=== PATIENT | male | born 1955 | race Caucasian/White ===

== ENCOUNTER 2021-06-25 13:08 | Observation (INO) | payer MEDICAID ==
[~2021-06-25] VITALS: Ht 190.5 cm; Wt 158.8 kg
[2021-06-25 13:13] VITALS: BP_SYST 158
[2021-06-25] MEDS ORDERED: *HEPARIN PER PHARMACY XX ONE (15:00)
[2021-06-25] MEDS ORDERED: HEPARIN SODIUM,PORCINE 2000 UNITS/0.4 ML BOLUS IVP PRN (15:15)
[2021-06-25] MEDS ORDERED: HEPARIN SODIUM,PORCINE 3000 UNITS/0.6 ML BOLUS IVP PRN (15:15)
[2021-06-25] MEDS ORDERED: HEPARIN 25,000 UNITS in 250 ML PREMIX IV PRN (15:30)
[2021-06-25] MEDS ORDERED: NACL 0.9% 1,000 ML IV ONE (15:30)
[2021-06-25] MEDS ORDERED: HEPARIN SODIUM,PORCINE 5,000 UNITS/ML VIAL IV ONE (15:30)
[2021-06-25] MEDS ORDERED: *LOVENOX 1MG/KG Q12H/PHARMACY XX ONE (15:30)
[2021-06-25] MEDS ORDERED: METOPROLOL TARTRATE 25 MG TABLET PO ONE (15:45)
[2021-06-25 16:06] LABS: BASOPHILS # (AUTO) 0.1 K/uL (0.0-0.2); BASOPHILS % (AUTO) 0.4 % (0.0-2.0); EOSINOPHILS # (AUTO) 0.3 K/uL (0.0-0.4); EOSINOPHILS % (AUTO) 2.6 % (0.0-4.0); HEMATOCRIT 48.3 % (36-54); HEMOGLOBIN 16.4 g/dL (14.0-18.0); LYMPHOCYTES # (AUTO) 1.2 K/uL (1.0-5.5); LYMPHOCYTES % (AUTO) 10.2 % (20.5-51.5); MEAN CORPUSCULAR HEMOGLOBIN 33 pg (27-31); MEAN CORPUSCULAR HGB CONC 34 % (32-36); MEAN CORPUSCULAR VOLUME 96 fL (79.0-98.0); MONOCYTES # (AUTO) 1.5 K/uL (0.0-1.0); MONOCYTES % (AUTO) 12.6 % (1.7-9.3); NEUTROPHILS # (AUTO) 8.8 K/uL (1.8-7.7); NEUTROPHILS % (AUTO) 74.2 % (40.0-70.0); PLATELET COUNT (AUTO) 289 K/uL (130-430); RED BLOOD CELL COUNT(AUTO) 5.02 MIL/uL (4.2-6.2); RED CELL DISTRIBUTION WIDTH 13.7 % (9.0-15.0); WHITE BLOOD COUNT (AUTO) 11.8 K/uL (4.8-10.8)
[2021-06-25 16:12] LABS: PROTHROMBIN TIME 10.7 SECS (9.5-12.5)
[2021-06-25 16:13] LABS: CALCIUM 8.8 mg/dL (8.4-11.0); CREATININE 0.85 mg/dL (0.55-1.30)
[2021-06-25 16:23] LABS: ALBUMIN 3.1 g/dL (3.4-4.8); TOTAL BILIRUBIN 0.7 mg/dL (0.0-1.0)
[2021-06-25] MEDS: ENOXAPARIN SODIUM 120 MG/0.8 ML SYRINGE SUBCUT SCH (16:57)
[2021-06-25] MEDS: ENOXAPARIN SODIUM 30 MG/0.3 ML SYRINGE SUBCUT SCH (17:02)
[2021-06-25 17:49] VITALS: BP_SYST 142
[2021-06-25] MEDS: METOPROLOL TARTRATE 25 MG TABLET PO SCH (21:49)
[2021-06-26] MEDS: ENOXAPARIN SODIUM 30 MG/0.3 ML SYRINGE SUBCUT SCH (04:24)
[2021-06-26] MEDS: ENOXAPARIN SODIUM 120 MG/0.8 ML SYRINGE SUBCUT SCH (04:24)
[2021-06-26] MEDS: METOPROLOL TARTRATE 25 MG TABLET PO SCH (08:39)
[2021-06-26] MEDS ORDERED: ACETAMINOPHEN 500 MG TABLET PO ONE (11:00)
[2021-06-26] MEDS ORDERED: APIX5TAB PO (11:02)
[2021-06-26] MEDS ORDERED: METO25TA6 PO (11:02)
== END 2021-06-26 13:05 | disposition home or self-care (01) ==
LOC: SED 13:08 → SMU 15:27
PROVIDERS: ADMIT General Practice; ATTEND General Practice
DX: I82.402 Acute embolism and thrombosis of unspecified deep veins of left lower extremity (principal); Z20.822 Contact with and (suspected) exposure to COVID-19; E66.9 Obesity, unspecified; I10 Essential (primary) hypertension; Z79.899 Other long term (current) drug therapy
CPT/HCPCS: 36415; 80053; 85025; 85610; 85730; 87426; 93971; 96360; 96372 ×2; 99284; G0378 ×2; J1650 ×4; J1644

== ENCOUNTER 2023-10-25 11:01 | Inpatient (IN) | payer MEDICAID, OTHER ==
[~2023-10-25] VITALS: Ht 190.5 cm; Wt 144.7 kg
[~2023-10-25 11:01] MED LIST: APIX5TAB PO; METO25TA6 PO
[2023-10-25 11:04] VITALS: BP_SYST 120; PULSE 90; RESP 18; TEMP 97.8; O2SAT 93
[2023-10-25 12:00] LABS: BASOPHILS % (AUTO) 0.4 % (0.0-2.0); EOSINOPHILS # (AUTO) 0.3 K/uL (0.0-0.4); EOSINOPHILS % (AUTO) 3.6 % (0.0-4.0); HEMATOCRIT 45.9 % (36-54); HEMOGLOBIN 15.4 g/dL (14.0-18.0); LYMPHOCYTES # (AUTO) 1.3 K/uL (1.0-5.5); MEAN CORPUSCULAR HEMOGLOBIN 34 pg (27-31); MEAN CORPUSCULAR HGB CONC 33 % (32-36); MEAN CORPUSCULAR VOLUME 100 fL (79.0-98.0); MONOCYTES # (AUTO) 0.9 K/uL (0.0-1.0); MONOCYTES % (AUTO) 9.9 % (1.7-9.3); NEUTROPHILS # (AUTO) 6.6 K/uL (1.8-7.7); NEUTROPHILS % (AUTO) 72.1 % (40.0-70.0); PLATELET COUNT (AUTO) 360 K/uL (130-430); RED BLOOD CELL COUNT(AUTO) 4.57 MIL/uL (4.2-6.2); RED CELL DISTRIBUTION WIDTH 14.2 % (9.0-15.0); WHITE BLOOD COUNT (AUTO) 9.2 K/uL (4.8-10.8)
[2023-10-25 12:54] LABS: ALANINE AMINOTRANSFERASE 19 U/L (12-78); ALBUMIN 2.7 g/dL (3.4-4.8); ANION GAP 8 (5-15); ASPARTATE AMINOTRANSFERASE 15 U/L (10-37); BILIRUBIN,DIRECT 0.3 mg/dL (0.0-0.3); CALCIUM 8.5 mg/dL (8.4-11.0); CARBON DIOXIDE 28 mmol/L (23-29); CHLORIDE 102 mmol/L (98-107); CREATINE KINASE, TOTAL 58 U/L (39-308); CREATININE 0.86 mg/dL (0.55-1.30); GFR AFRICAN AMERICAN 114 mL/min (>90); GLUCOSE 130 mg/dL (74-106); POTASSIUM 4.2 mmol/L (3.5-5.1); SALICYLATE 1 mg/dL (3-30); SODIUM SERUM 138 mmol/L (136-145); TOTAL BILIRUBIN 0.9 mg/dL (0.0-1.0); TOTAL PROTEIN, SERUM 6.3 g/dL (6.4-8.3); UREA NITROGEN, BLOOD 11 mg/dL (8-21)
[2023-10-25 13:01] LABS: ACETAMINOPHEN < 1 ug/mL (1-30); ALCOHOL, BLOOD < 3 mg/dL (<10); GFR NON AFRICAN-AMERICAN 95 mL/min (>90)
[2023-10-25] MEDS: cloNIDine HCL 0.1 MG TABLET PO ONE (13:34)
[2023-10-25 13:40] LABS: BILIRUBIN,URINE 1+ (NEGATIVE); BLOOD, URINE 2+ (NEGATIVE); CLARITY/URINE CLEAR (CLEAR); COLOR,URINE YELLOW (YELLOW); GLUCOSE,URINE NEGATIVE (NEGATIVE); KETONES,URINE NEGATIVE (NEGATIVE); LEUKOCYTE ESTERASE ,URINE NEGATIVE (NEGATIVE); NITRITE, URINE NEGATIVE (NEGATIVE); PROTEIN URINE NEGATIVE (NEGATIVE)
[2023-10-25 13:59] LABS: BARBITURATE, URINE NEGATIVE (NEG <=200); BENZODIAZEPINE, URINE NEGATIVE (NEG <=150); CANNABINOID, URINE NEGATIVE (NEG <=50); COCAINE, URINE NEGATIVE (NEG <=150); METHAMPHETAMINES SCREEN,URINE NEGATIVE (NEG <=500); OPIATE, URINE NEGATIVE (NEG <=100); PHENCYCLIDINE SCREEN,URINE NEGATIVE (NEG <=25); URINE AMPHETAMINE NEGATIVE (NEG <=500); URINE METHADONE NEGATIVE (NEG <=200); URINE OXYCODONE SCREEN NEGATIVE (NEG <=100)
[2023-10-25 14:00] LABS: UR TRICYCLIC ANTIDEPRESSANTS NEGATIVE (NEG <=300)
[2023-10-25 14:14] LABS: ACETONE, SERUM NEGATIVE (NEGATIVE)
[2023-10-25 14:30] LABS: BACTERIA,URINE None Seen /HPF (None Seen); WBC,URINE NONE SEEN /HPF (0-3)
[2023-10-25] MEDS ORDERED: LORazepam 2 MG/ML VIAL IM PRN (17:00)
[2023-10-25] MEDS: NEPHROVITE, (FOLIC ACID/VITAMIN B COMP W-C 1 TAB) PO ONE (18:00)
[2023-10-25 18:20] VITALS: BP_SYST 159; PULSE 63; RESP 15; TEMP 97.6; O2SAT 95
[2023-10-25] MEDS: MULTIVITAMINS TAB 1 TABLET PO ONE (18:35)
[2023-10-25 20:15] VITALS: BP_SYST 123; PULSE 70; RESP 20; TEMP 96.8; O2SAT 97
[2023-10-25] MEDS: METOPROLOL TARTRATE 25 MG TABLET PO SCH (22:14)
[2023-10-26] VITALS (7 sets, daily range): BP systolic 134–143; PULSE 63–82; RESP 16–20; TEMP 96.2–97.5; O2SAT 93–96
[2023-10-26] MEDS: NEPHROVITE, (FOLIC ACID/VITAMIN B COMP W-C 1 TAB) PO SCH (09:35)
[2023-10-26] MEDS: MULTIVITAMINS TAB 1 TABLET PO SCH (09:35)
[2023-10-27 02:30] VITALS: RESP 20; TEMP 96.8; O2SAT 94
[2023-10-27 07:13] LABS: BASOPHILS % (AUTO) 0.3 % (0.0-2.0); EOSINOPHILS # (AUTO) 0.3 K/uL (0.0-0.4); EOSINOPHILS % (AUTO) 3.5 % (0.0-4.0); HEMATOCRIT 45.7 % (36-54); HEMOGLOBIN 15.2 g/dL (14.0-18.0); LYMPHOCYTES # (AUTO) 1.5 K/uL (1.0-5.5); LYMPHOCYTES % (AUTO) 16.1 % (20.5-51.5); MEAN CORPUSCULAR HEMOGLOBIN 34 pg (27-31); MEAN CORPUSCULAR HGB CONC 33 % (32-36); MEAN CORPUSCULAR VOLUME 101 fL (79.0-98.0); MONOCYTES # (AUTO) 1.2 K/uL (0.0-1.0); MONOCYTES % (AUTO) 13.1 % (1.7-9.3); NEUTROPHILS # (AUTO) 6.4 K/uL (1.8-7.7); PLATELET COUNT (AUTO) 330 K/uL (130-430); RED BLOOD CELL COUNT(AUTO) 4.53 MIL/uL (4.2-6.2); RED CELL DISTRIBUTION WIDTH 14.1 % (9.0-15.0); WHITE BLOOD COUNT (AUTO) 9.5 K/uL (4.8-10.8)
[2023-10-27 07:55] LABS: ALBUMIN 2.6 g/dL (3.4-4.8); CALCIUM 8.5 mg/dL (8.4-11.0); CREATININE 0.86 mg/dL (0.55-1.30); POTASSIUM 3.8 mmol/L (3.5-5.1); TOTAL BILIRUBIN 0.7 mg/dL (0.0-1.0)
[2023-10-27] MEDS ORDERED: ACETAMINOPHEN 325 MG TABLET PO PRN (09:00)
[2023-10-27 11:04] VITALS: BP_SYST 119; PULSE 68; RESP 16; TEMP 97.6; O2SAT 95
[2023-10-27 15:16] VITALS: BP_SYST 135; PULSE 66; RESP 16; TEMP 96.8; O2SAT 95
[2023-10-27] MEDS ORDERED: ACET325T PO (15:16)
[2023-10-27 20:00] VITALS: BP_SYST 144; PULSE 66; RESP 18; TEMP 97; O2SAT 98
[2023-10-28] VITALS: BP_SYST 136; PULSE 68; RESP 16; TEMP 97.8; O2SAT 98
[2023-10-28] MEDS: LIDOCAINE PATCH 5% 1 EA TP SCH (09:00)
[2023-10-28 09:09] LABS: MEAN CORPUSCULAR HGB CONC 34 % (32-36); RED CELL DISTRIBUTION WIDTH 14.2 % (9.0-15.0); WHITE BLOOD COUNT (AUTO) 8.6 K/uL (4.8-10.8)
[2023-10-28 09:12] LABS: BASOPHILS % (AUTO) 0.4 % (0.0-2.0); EOSINOPHILS # (AUTO) 0.4 K/uL (0.0-0.4); EOSINOPHILS % (AUTO) 4.1 % (0.0-4.0); HEMATOCRIT 46.1 % (36-54); HEMOGLOBIN 15.6 g/dL (14.0-18.0); LYMPHOCYTES # (AUTO) 1.7 K/uL (1.0-5.5); LYMPHOCYTES % (AUTO) 20.3 % (20.5-51.5); MEAN CORPUSCULAR HEMOGLOBIN 34 pg (27-31); MEAN CORPUSCULAR VOLUME 100 fL (79.0-98.0); MONOCYTES # (AUTO) 0.8 K/uL (0.0-1.0); MONOCYTES % (AUTO) 9.7 % (1.7-9.3); NEUTROPHILS # (AUTO) 5.6 K/uL (1.8-7.7); NEUTROPHILS % (AUTO) 65.5 % (40.0-70.0); PLATELET COUNT (AUTO) 398 K/uL (130-430); RED BLOOD CELL COUNT(AUTO) 4.62 MIL/uL (4.2-6.2)
[2023-10-28 09:27] LABS: ALBUMIN 2.8 g/dL (3.4-4.8); CALCIUM 8.6 mg/dL (8.4-11.0); CREATININE 0.85 mg/dL (0.55-1.30); POTASSIUM 3.8 mmol/L (3.5-5.1); TOTAL BILIRUBIN 0.6 mg/dL (0.0-1.0); TOTAL PROTEIN, SERUM 6.3 g/dL (6.4-8.3)
[2023-10-28 11:07] VITALS: BP_SYST 119; PULSE 73; RESP 16; TEMP 96.8; O2SAT 94
[2023-10-28 12:58] VITALS: BP_SYST 119; PULSE 73; RESP 16; TEMP 96.8; O2SAT 94
== END 2023-10-28 13:19 | disposition home health service (06) | DRG 917 ==
LOC: SED 11:01 → SMU 15:08
PROVIDERS: ADMIT Family Medicine; ATTEND Family Medicine
DX: T51.91XA Toxic effect of unspecified alcohol, accidental (unintentional), initial encounter (principal); G92.8 Other toxic encephalopathy; F03.90 Unspecified dementia, unspecified severity, without behavioral disturbance, psychotic disturbance, mood disturbance, and anxiety; M94.0 Chondrocostal junction syndrome [Tietze]; F10.10 Alcohol abuse, uncomplicated; I10 Essential (primary) hypertension; Z79.01 Long term (current) use of anticoagulants; Y90.9 Presence of alcohol in blood, level not specified; Y90.0 Blood alcohol level of less than 20 mg/100 ml
CPT/HCPCS: 36415; 70450-TC; 71045; 73502; 80048; 80053; 80076; 80307; 81000; 81001; 81015; 82009; 82140; 82550; 83605; 84484; 85025; 93005; 97110-GP; 97112-GP; 97116-GP; 97530-GP; 99285; G0480; G0481; G0482